=== PATIENT | male | born 1990 | race Caucasian/White ===

== ENCOUNTER 2023-10-28 15:15 | Emergency (ER) | payer MEDICAID ==
[2023-10-28 16:43] LABS: AMPHETAMINE SCREEN,URINE NEGATIVE (NEGATIVE); BARBITURATE SCREEN,UR NEGATIVE (NEGATIVE); BENZODIAZEPINES SCREEN, URINE NEGATIVE (NEGATIVE); BUPRENORPHINE SCREEN, URINE NEGATIVE (NEGATIVE); COCAINE SCREEN URINE NEGATIVE (NEGATIVE); METHADONE SCREEN, URINE NEGATIVE (NEGATIVE); METHAMPHETAMINES SCREEN, URINE NEGATIVE (NEGATIVE); OPIATE SCREEN, URINE NEGATIVE (NEGATIVE); OXYCODONE SCREEN, URINE NEGATIVE (NEGATIVE); THC CANNABINOID SCREEN, URINE POSITIVE (NEGATIVE); TRICYCLIC ANTIDEPRESSANT,URINE NEGATIVE (NEGATIVE)
--- NOTE | 2023-10-28 17:53 | ED Physician Documentation ---
PD HPI MHE - Stated complaint Stated Complaint: MHE - Chief complaint Chief Complaint: MHE - History obtained from History obtained from: Patient - Additional information Additional information: 33-year-old gentleman with chronic depression presents with suicidal ideation with multiple plans including slitting his wrists or jumping off the bridge. He has an appointment outpatient but does not feel like it soon enough for safety. PD PAST MEDICAL HISTORY - Present Medications Home Medications: Ambulatory Orders Medication Instructions Recorded Confirmed No Known Home Medications 10/28/23 10/28/23 - Allergies Allergies/Adverse Reactions: Allergies Allergy/AdvReac Type Severity Reaction Status Date / Time acetaminophen AdvReac Unknown Verified 10/28/23 15:54 ibuprofen AdvReac Unknown Verified 10/28/23 15:55 PD ED PE NORMAL - Vitals Vital signs reviewed: Yes - General General: Alert and oriented X 3, No acute distress - Neuro Neuro: Alert and oriented X 3, Normal speech - Psych Psych: Other (Seems sad with poor eye contact) Results - Vitals Vitals: Vital Signs - 24 hr 10/28/23 10/28/23 15:40 18:17 Temperature 36.7 C 36.9 C Heart Rate 76 69 Respiratory 17 18 Rate Blood Pressure 160/93 H 138/78 H O2 Saturation 99 100 Oxygen O2 Source Room air - Labs Labs: Laboratory Tests 10/28/23 10/28/23 10/28/23 15:50 15:50 16:15 WBC RBC Hgb Hct MCV MCH MCHC RDW Plt Count MPV Neut # (Auto) Lymph # (Auto) [place] # (Auto) Eos # (Auto) Baso # (Auto) Absolute Nucleated RBC Nucleated RBC % Sodium Potassium Chloride Carbon Dioxide Anion Gap BUN Creatinine Estimated GFR (MDRD) Glucose Calcium Magnesium Total Bilirubin AST ALT Alkaline Phosphatase Total Creatine Kinase Total Protein Albumin Globulin Albumin/Globulin Ratio Lipase TSH Urine Color YELLOW Urine Clarity CLEAR Urine pH 7.0 Ur Specific [place]ck[place] 1.015 Urine Protein NEGATIVE Urine Glucose (UA) NEGATIVE Urine Ketones NEGATIVE Urine Occult Blood NEGATIVE Urine Nitrite NEGATIVE Urine Bilirubin NEGATIVE Urine Urobilinogen 0.2 (NORMAL) Ur Leukocyte Esterase NEGATIVE Ur Microscopic Review NOT INDICATED Urine Culture Comments NOT INDICATED Salicylates Urine Opiates Screen NEGATIVE Ur Buprenorphine Scrn NEGATIVE Ur Oxycodone Screen NEGATIVE Urine Methadone Screen NEGATIVE Acetaminophen Ur Barbiturates Screen NEGATIVE Ur Tricyclics Screen NEGATIVE Ur Phencyclidine Scrn NEGATIVE Ur Amphetamine Screen NEGATIVE U Methamphetamines Scrn NEGATIVE U Benzodiazepines Scrn NEGATIVE Urine Cocaine Screen NEGATIVE U Cannabinoids Screen POSITIVE H Ur Drug Screen Comment CUTOFF CONC BELOW: Ethyl Alcohol < 10.0 SARS-CoV-2 (PCR) 10/28/23 10/28/23 10/28/23 16:15 16:15 18:11 WBC 7.7 RBC 4.93 Hgb 15.1 Hct 45.5 MCV 92.3 MCH 30.6 MCHC 33.2 RDW 12.3 Plt Count 253 MPV 10.0 Neut # (Auto) 4.7 Lymph # (Auto) 2.3 [place] # (Auto) 0.5 Eos # (Auto) 0.2 Baso # (Auto) 0.1 Absolute Nucleated RBC 0.00 Nucleated RBC % 0.0 Sodium 141 Potassium 4.0 Chloride 104 Carbon Dioxide 27 Anion Gap 10.0 BUN 14 Creatinine 1.0 Estimated GFR (MDRD) 87 L Glucose 88 Calcium 9.7 Magnesium 1.9 Total Bilirubin 0.6 AST 18 ALT 15 Alkaline Phosphatase 65 Total Creatine Kinase 153 Total Protein 8.0 Albumin 4.8 Globulin 3.2 Albumin/Globulin Ratio 1.5 Lipase 18 TSH 2.63 Urine Color Urine Clarity Urine pH Ur Specific [place] Urine Protein Urine Glucose (UA) Urine Ketones Urine Occult Blood Urine Nitrite Urine Bilirubin Urine Urobilinogen Ur Leukocyte Esterase Ur Microscopic Review Urine Culture Comments Salicylates < 1.5 Urine Opiates Screen Ur Buprenorphine Scrn Ur Oxycodone Screen Urine Methadone Screen Acetaminophen 0.1 Ur Barbiturates Screen Ur Tricyclics Screen Ur Phencyclidine Scrn Ur Amphetamine Screen U Methamphetamines Scrn U Benzodiazepines Scrn Urine Cocaine Screen U Cannabinoids Screen Ur Drug Screen Comment Ethyl Alcohol SARS-CoV-2 (PCR) NOT DETECTED PD Medical Decision Making - ED course ED course: Telepsychiatric consultation ordered. He is medically clear for psychiatric evaluation and/or transfer. Telepsychiatric nurse practitioner is recommending inpatient treatment. Care to overnight ED MD at shift change pending bed search completion. Departure - Departure Clinical Impression: Suicidal ideation Condition: Stable Forms: PCP List
[2023-10-28 18:01] LABS: BASOPHILS # (AUTO) 0.1 10^3/uL (0.0-0.1); BASOPHILS % (AUTO) 0.7 %; EOSINOPHILS # (AUTO) 0.2 10^3/uL (0.0-0.7); HCT - HEMATOCRIT 45.5 % (42.0-52.0); HGB - HEMOGLOBIN 15.1 g/dL (14.0-18.0); LYMPHOCYTES # (AUTO) 2.3 10^3/uL (1.5-3.5); LYMPHOCYTES % (AUTO) 29.9 %; MEAN CORPUSCULAR HEMOGLOBIN 30.6 pg (27.0-31.0); MEAN CORPUSCULAR HGB CONC 33.2 g/dL (32.0-36.0); MEAN CORPUSCULAR VOLUME 92.3 fL (80.0-94.0); MONOCYTES # (AUTO) 0.5 10^3/uL (0.0-1.0); MONOCYTES % (AUTO) 6.1 %; NEUTROPHILS # (AUTO) 4.7 10^3/uL (1.5-6.6); PLT - PLATELET COUNT 253 10^3/uL (130-450); RED BLOOD COUNT 4.93 10^6/uL (4.70-6.10); RED CELL DISTRIBUTION WIDTH 12.3 % (12.0-15.0); WHITE BLOOD COUNT 7.7 x10^3/uL (4.8-10.8)
[2023-10-28 18:11] LABS: ACETAMINOPHEN 0.1 ug/mL; ALBUMIN 4.8 g/dL (3.2-5.5); ALBUMIN/GLOBULIN RATIO 1.5 (1.0-2.2); ALKALINE PHOSPHATASE 65 IU/L (42-121); ALT ALANINE AMINOTRANSFERASE 15 IU/L (10-60); AST ASPARTATE AMINOTRANSFERASE 18 IU/L (10-42); BILIRUBIN,TOTAL 0.6 mg/dL (0.2-1.0); BUN - BLOOD UREA NITROGEN 14 mg/dL (6-20); CALCIUM 9.7 mg/dL (8.5-10.3); CARBON DIOXIDE - CO2 27 mmol/L (21-32); CHLORIDE 104 mmol/L (101-111); CK- CREATINE KINASE 153 IU/L (30-223); GFR - MDRD 87 (>89); GLUCOSE 88 mg/dL (74-104); LIPASE 18 U/L (11-82); MAGNESIUM 1.9 mg/dL (1.7-2.3); SODIUM 141 mmol/L (135-145)
[2023-10-28 18:13] LABS: BILIRUBIN,URINE NEGATIVE (NEGATIVE); GLUCOSE, URINE (UA) NEGATIVE (NEGATIVE); KETONES,URINE (UA) NEGATIVE (NEGATIVE); LEUKOCYTE ESTERASE, URINE NEGATIVE (NEGATIVE); NITRITE,URINE NEGATIVE (NEGATIVE); OCCULT BLOOD,URINE NEGATIVE (NEGATIVE); PROTEIN,URINE NEGATIVE (NEGATIVE); UROBILINOGEN,URINE 0.2 (NORMAL) E.U./dL (NORMAL)
[2023-10-28 18:14] LABS: CLARITY,URINE CLEAR (CLEAR)
[2023-10-28 18:15] LABS: SALICYLATE < 1.5 mg/dL
[2023-10-28 18:40] LABS: THYROID STIMULATING HORMONE 2.63 uIU/mL (0.34-5.60)
--- NOTE | 2023-10-28 19:23 | TELEPSYCH PHYS NOTE ---
[facility] Telepsych Consult Consult Date: 10/28/23 Name of Referring Provider:: Unknown Reason for Consult: Suidical Ideation - Suicide Risk Sreening (ASQ Tool) In the past few weeks, have you wished you were ?: Yes In the past few weeks, have you felt that you or your family would be better off if you were ?: Yes In the past week, have you been having thoughts about killing yourself?: Yes Have you ever tried to kill yourself?: Yes - Assessment Language: Micronesian Employment Attorney Required: No Cultural, Worship or Spiritual Preferences: "No I do not." Notes: Suicidal Ideation Chief Complaint: Patient states, "I've had suicidal thoughts in the past and I have almost gone through with it once in my life but I did not seek help but this time around it feels like it is driving me and I don't want to be here anymore and I have been having extreme thoughts on ending it and they have been more and more clear and I am not ready to end it though I want to end it and I am scared of myself being alone." History of Present Illness: Patient says that he is here for suicidal thoughts and a fear that he will act on them. He says that he went to [facility] for help outpatient but they did not have any appointments available soon and so he came here." He says that in the last 8 months he has been having a lot going on, starting a new job having children, animals and getting laid off (July 31.) "People st ress me out. I just started getting depressed and going backwards. I have done it before and I can't throw it away. It is a lot of stressors and these are normal things I should not be overwhelmed by. I am aware of that and I can't figure out why.' He says that it has been very hard for him to hold a job for more than a few months. This last one he had for 6 months. "The last time I had something to my head and I was ready to end it. I just can't risk that." In the past when his depression got bad he was able to take Lamictal and getou t of it and in the last stretch and he was on Xanax and he does not want to get back to this. Lamictal worked and he got better and he decided that he did not need it. It has been about 9 years since then. He did feel like it slowed his thinking some. He was told by one therapist that he may have bipolar and another with OCD and PTSD. He thinks that anxiety, depression and agoraphobia have also been dx he has been given. He hated trying many of the drug trials. He also thinks that he has ADHD. He denies having had a manic episode in the past. If 10 is the worst, he would rate his depression at a 10/10 much of the time "I can't stop crying and thinking about it. It is hard this time around, emotions keep coming and I can't stop." For anxiety, he would rate this at a 4/10 "My anxiety is not really bad right now." "I think I sleep. I am not really sure I have just been tired a lot in the last month or so. I have been floating through life." In terms of is appetite, he reports that he does not have an appetite. "I have to smoke to want to eat." Even when he is hungry he feels like he could, "go without it." He denies any AVH. Suicide Ideation - Homicide Ideation - Self Harm: SI- Having thoughts all the time lately and he had a plan to jump off a bridge or cut himself. Feels that he would act on the thoughts without a safe space. One previous attempt, about a year ago, he had a gun to his head, loaded. HI- Denies Self injury- Denies outside of once "Because I could not figure out to communicate with people at work and so I cut myself to get out of work." Psychiatric History - Treatment History: DX- OCD, PTSD, Bipolar , depression, anxiety, ADHD Medication history - Lamictal has worked well for him. He had been on Xanax and does not want to be on this again. Klonopin and Valium worked well when he was young but then made him feel suicidal later in his life. He was on a lot but he does not recall wht they were, one gave him ED "and that made me suicidal." OP- [facility] health 10 years ago and has not be on anything since." IP- Never Community Resources Accessed: None Family Psych History/ History of suicide: Father has undiagnosed depression and anxiety Nutritional Status: No nutritional concerns, Decrease in food intake and/or appetite - Medication & Allergies Home Medications: Ambulatory Orders Medication Instructions Recorded Confirmed No Known Home Medications 10/28/23 10/28/23 Allergies/Adverse Reactions: Allergies Allergy/AdvReac Type Severity Reaction Status Date / Time acetaminophen AdvReac Unknown Verified 10/28/23 15:54 ibuprofen AdvReac Unknown Verified 10/28/23 15:55 - Drug & Alcohol History Does patient have Drug/ETOH history or addictive behavior?: Yes Use: Uses substance without health or social issues: Cannabis - Trauma Does the patient have a history of trauma, abuse, neglect or explotation?: Yes History of trauma, abuse, neglect, or exploitation (Notes): "Kind of seems like I have. I don't know if I was neglected but sometimes I think that I am. In the way of not getting enough love or attention. Feeling like I grew up too fast." - Personal Information Does the patient have a history or present tendencies for violence?: None History or present tendencies for violence (Notes): denies Services History: Denies Does patient have any Legal Charges or Investigations?: No Legal Charges or Investigations (Notes): Denies Environment & Living Situation - Social, Peer-Group (Note): At home Environment & Living Situation - Social, Peer-Group (Notes): and his step daughter Esperanza 16 years old Marital Status - Family Circumstances: once and has been for the last8 months. Stressors - Financial Concerns: See HPI Education: Some college Occupation: Manual labor "Minimal interactions with people." Collateral - Interdisciplinary Input: Nettie, his says, "I don't know I have not really had time to process things right now." Childhood History: Feels that he had to grow up too fast and did not have enough love and attention. - Mental Status Exam Appearance and Attire: In hospital attire and wearing his hat. Attitude and Behavior: Calm and cooperative Speech: Slow aster and some hesitancy Affect and Mood: Depressed mood and affect Association and Thought Process: Logical and linear Thought Content: No evidence of any delusions or obsessions Perception: Denies AVH and no evidence of any noted Sensorium, memory and orientation: Alert and oriented Intellectual - Cognitive functioning: No deficits noted Insight and Judgement: Insight is good judgement fair Emotional and Behavioral Functioning: Struggles to reach out to others when he needs support Ability to Self-Care: Poor at this time due to safety concerns - Personal Goals Short-term Goals: "I just started school but I am going to inpatient care, so." (Started school for business management) Long-term Goals: "Opening my own bakery with my ." - Risk/Protective Factors Risk Factors: Trigger events leading to humiliation, shame and/or despair, Inadequate social supports, Social Isolation, Perceived burden on other Protective Factors / Internal: Identifies reasons for living Protective Factors / External: Responsibility to children, Supportive social network of family or friends - Plan Impression/Risk Assessment: This patient is coming in with a host of stressors and significant suicidal thoughts. He has a past potentially fatal suicide attempt and was able to reach out for help today before it got to that point which is a sign he is ready to get much needed help. He is insightful and motivated at this time to get the help. Patient is aware he needs to do a better job of engaging with a healing community. He will need inpatient placement for safety and a good OP plan at discharge. Treatment - Therapy Recommendations: Inpatient treatment Pharmacological Recommendations: Restart Lamictal 25 mg PO daily - Time Spent & Provider Location Telepsych consultation conducted via videoconferencing: Yes List names and roles of persons who participated in consult: [facility] Telepsych Provider Location: [place], [place] Time Spent (Minutes): 70
[2023-10-28] MEDS ORDERED: ONDANSETRON 4 MG/2 ML VIAL IVP PRN (23:29)
--- NOTE | 2023-10-28 23:30 | ED Physician Documentation ---
ED Addendum - Addendum Addendum: 10/28/23 23:29 Patient accepted to [facility] - [place], [place]. Pickup and will be at noon tomorrow. Hospital bed ordered in the meantime. Disposition inpatient psychiatric transfer Condition stable Impression 1 depression 2 SI
[2023-10-29] MEDS ORDERED: ATROPINE 0.4 MG/ML VIAL IVP ONE (05:57)
[2023-10-29 08:58] VITALS: BP 123/69; O2SAT 100
[2023-10-29] MEDS ORDERED: lamoTRIgine 25 MG TABLET PO SCH (09:00)
--- NOTE | 2023-10-29 09:39 | ED Physician Documentation ---
ED Addendum - Addendum Addendum: 10/29/23 09:38 The patient reportedly slept well overnight and was not having any particular complaints. [facility] is here to pick him up for transfer safely to psychiatric facility. The patient is still agreeable. Disposition: Transfer to acute care psychiatric facility Diagnoses: 1. Depression 2. Suicidal ideation
== END 2023-10-29 09:53 ==
LOC: ED 15:15
DX: R45.851 Suicidal ideations (principal); F32.A Depression, unspecified
CPT/HCPCS: 36415; 80053; 80306; 80307; 80320; 80329; 81003; 82550; 83690; 83735; 84443; 85025; 87635; 99284; 99285; A9270; G0427; Q3014; 81001; 87086